=== PATIENT | male | born 1935 | race Caucasian/White ===

== ENCOUNTER 2016-10-26 15:20 | Emergency (ER) | payer OTHER, BC ==
[~2016-10-26] VITALS: Ht 177.8 cm; Wt 110.6 kg
[~2016-10-26 15:20] MED LIST: CMD/25 PO; ENAL10TA88 PO; FURO-85 PO; METO1TAB69 PO
[2016-10-26 15:28] VITALS: TEMP 36.3; Ht 177.8 cm; Wt 110.6 kg
[2016-10-26] MEDS ORDERED: XYLOCAINE 1%/SOD BICARB 20 ML VIAL INFIL ONE ×2 (15:45→18:30)
[2016-10-26] MEDS ORDERED: DIPHTHERIA/TETANUS/PERTUSSIS 0.5 ML SYR/VIAL IM. ONE (15:45)
[2016-10-26] MEDS ORDERED: ENAL5TAB83 PO (15:46)
[2016-10-26] MEDS ORDERED: CLIN150C PO (15:46)
[2016-10-26] MEDS ORDERED: HYDR25TA4 PO (15:46)
[2016-10-26] MEDS ORDERED: ATOR-22 PO (15:46)
[2016-10-26] MEDS ORDERED: WARF2.5T8 PO (15:46)
[2016-10-26] MEDS ORDERED: TAMS0.4C38 PO (15:50)
[2016-10-26 15:57] LABS: BASO % 0.3 %; BASO ABS # 0.02 K/uL (0-0.2); COMPLETE YES; EOS % 3.7 %; HEMATOCRIT 45.2 % (42-52); IG% 0.4 %; LYMPH % 12.9 %; LYMPH ABS # 0.95 K/uL (1.2-3.4); MEAN CELL VOLUME 90.6 fL (80-100); MEAN CORPUSCULAR HEMOGLOBIN 30.3 pg (25-34); MEAN CORPUSCULAR HGB CONC 33.4 g/dl (32-36); MEAN PLATELET VOLUME 8.4 fL (7.4-10.4); MONO % 8.6 %; NEUT % 74.1 %; PLATELET COUNT 160 K/uL (130-400); RED BLOOD COUNT 4.99 M/uL (4.7-6.1); WHITE BLOOD COUNT 7.34 K/uL (4.8-10.8)
--- NOTE | 2016-10-26 16:05 | DIAGNOSTIC IMAGING REPORT ---
HEAD CT NONCONTRAST CT DOSE: 782.75 mGycm HISTORY: Fall. Head injury. On thinners. TECHNIQUE: Multiaxial CT images of the head were performed without the use of intravenous contrast. Automated exposure control was utilized for this study. Comparison: None. Findings: Partial opacification of the ethmoid air cells. The mastoid air cells are clear. The calvarium and skull base are intact. There is no mass, hematoma, midline shift, acute infarct. White matter hypodensity is nonspecific but suggestive of microvascular ischemic change. The ventricles and sulci demonstrate mild age-related involutional changes. Impression: No acute intracranial abnormality. Electronically signed by: Luis Yepez M.D. 10/26/2016 4:03 PM Dictated Date/Time: 10/26/2016 4:00 PM
[2016-10-26 16:15] LABS: INR 2.2 (0.9-1.1); PARTIAL THROMBOPLASTIN RATIO 1.4
[2016-10-26 16:23] LABS: BUN/CREATININE RATIO 21.6 (10-20); CALCIUM 8.2 mg/dl (8.5-10.1); CREATININE 1.2 mg/dl (0.60-1.40); POTASSIUM 3.5 mmol/L (3.5-5.1)
--- NOTE | 2016-10-26 16:49 | DIAGNOSTIC IMAGING REPORT ---
LEFT HAND 3 VIEWS HISTORY: Fall. Left hand pain/laceration COMPARISON: None. FINDINGS: No acute fractures. Offset at the fifth carpometacarpal joint. The base of the fifth metacarpal demonstrates up to 4 mm of ulnar displacement in relation to the carpal bones. Dorsal soft tissue swelling. Moderate degenerative changes at the DIP and PIP joints. No radiopaque foreign bodies. IMPRESSION: Offset at the fifth carpometacarpal joint. There is approximately 4 mm of ulnar displacement of the fifth metacarpal in relation to the carpal bones. This likely represents a dislocation. No acute fractures. Electronically signed by: Luis Yepez M.D. 10/26/2016 4:48 PM Dictated Date/Time: 10/26/2016 4:44 PM
--- NOTE | 2016-10-26 16:49 | DIAGNOSTIC IMAGING REPORT ---
CHEST 2 VIEWS ROUTINE CLINICAL HISTORY: Fall. Left anterior chest wall pain COMPARISON STUDY: 04/04/2010 FINDINGS: The heart is enlarged. There is no pneumothorax. There is aortic tortuosity/ectasia. There is chronic residual thickening. There is no lobar consolidation. There are no pleural effusions. There are postsurgical changes of a left humeral arthroplasty. Degenerative changes are present within the right shoulder. There is a peritendinous calcification on the right.[ IMPRESSION: Cardiomegaly and mild chronic interstitial thickening. No acute findings. Electronically signed by: Harvey Martin M.D. 10/26/2016 4:48 PM Dictated Date/Time: 10/26/2016 4:47 PM
--- NOTE | 2016-10-26 17:10 | EMERGENCY ROOM VISIT NOTE ---
ED Visit Note First contact with patient: 15:36 I have seen and examined this patient with Blaise Frankel and generally agree with the treatment plan as discussed. Current/Historical Medications Scheduled Atorvastatin (Lipitor), 20 MG PO DAILY Clindamycin Hcl (Cleocin), 600 MG PO UD Enalapril (Vasotec), 5 MG PO DAILY Hydrochlorothiazide (Hctz), 25 MG PO DAILY Metoprolol Succ (Toprol Xl) (Toprol-Xl ), 100 MG PO DAILY Tamsulosin Hcl (Flomax), 0.4 MG PO HS Warfarin Sod (Jantoven), 2.5 MG PO DAILY Allergies Coded Allergies: Penicillins (Verified Adverse Reaction, Unknown, N/V, 09/23/09) No Known Allergies (Verified , 09/15/04) Vital Signs Date Time Temp Pulse Resp B/P Pulse Ox O2 Delivery O2 Flow Rate FiO2 10/26/16 15:28 36.3 76 20 114/75 94 Room Air Laboratory Results 10/26/16 15:48 Red Blood Count 4.99, Mean Corpuscular Volume 90.6, Mean Corpuscular Hemoglobin 30.3, Mean Corpuscular Hemoglobin Concent 33.4, Mean Platelet Volume 8.4, Neutrophils (%) (Auto) 74.1, Lymphocytes (%) (Auto) 12.9, Monocytes (%) (Auto) 8.6, Eosinophils (%) (Auto) 3.7, Basophils (%) (Auto) 0.3, Neutrophils # (Auto) 5.44, Lymphocytes # (Auto) 0.95, Monocytes # (Auto) 0.63, Eosinophils # (Auto) 0.27, Basophils # (Auto) 0.02 10/26/16 15:48 Test 10/26/16 15:48 White Blood Count 7.34 K/uL (4.8-10.8) Red Blood Count 4.99 M/uL (4.7-6.1) Hemoglobin 15.1 g/dL (14.0-18.0) Hematocrit 45.2 % (42-52) Mean Corpuscular Volume 90.6 fL (80-100) Mean Corpuscular Hemoglobin 30.3 pg (25-34) Mean Corpuscular Hemoglobin Concent 33.4 g/dl (32-36) Platelet Count 160 K/uL (130-400) Mean Platelet Volume 8.4 fL (7.4-10.4) Neutrophils (%) (Auto) 74.1 % Lymphocytes (%) (Auto) 12.9 % Monocytes (%) (Auto) 8.6 % Eosinophils (%) (Auto) 3.7 % Basophils (%) (Auto) 0.3 % Neutrophils # (Auto) 5.44 K/uL (1.4-6.5) Lymphocytes # (Auto) 0.95 K/uL (1.2-3.4) Monocytes # (Auto) 0.63 K/uL (0.11-0.59) Eosinophils # (Auto) 0.27 K/uL (0-0.5) Basophils # (Auto) 0.02 K/uL (0-0.2) RDW Standard Deviation 50.7 fL (36.4-46.3) RDW Coefficient of Variation 15.3 % (11.5-14.5) Immature Granulocyte % (Auto) 0.4 % Immature Granulocyte # (Auto) 0.03 K/uL (0.00-0.02) Prothrombin Time 24.0 SECONDS (9.0-12.0) Prothromb Time International Ratio 2.2 (0.9-1.1) Activated Partial Thromboplast Time 35.9 SECONDS (21.0-31.0) Partial Thromboplastin Ratio 1.4 Anion Gap 8.0 mmol/L (3-11) Est Creatinine Clear Calc Drug Dose 58.1 ml/min Estimated GFR () 64.4 Estimated GFR (Non- 55.6 BUN/Creatinine Ratio 21.6 (10-20) Calcium Level 8.2 mg/dl (8.5-10.1) Total Bilirubin 0.9 mg/dl (0.2-1) Aspartate Amino Transf (AST/SGOT) 16 U/L (15-37) Alanine Aminotransferase (ALT/SGPT) 18 U/L (12-78) Alkaline Phosphatase 69 U/L (45-117) Total Protein 6.5 gm/dl (6.4-8.2) Albumin 3.3 gm/dl (3.4-5.0) Globulin 3.2 gm/dl (2.5-4.0) Albumin/Globulin Ratio 1.0 (0.9-2) Medications Administered Medications (Trade) Dose Ordered Sig/Ashley Route Start Time Stop Time Status Last Admin Dose Admin Diphtheria/ Pertussis/Tetanus Vacc (Adacel Inj) 0.5 ml ONCE ONCE IM. 10/26/16 15:45 10/26/16 15:46 DC 10/26/16 16:08 0.5 ML Departure Information Referrals Humble Perea M.D. (PCP) Patient Instructions My [facility]
--- NOTE | 2016-10-26 17:11 | DIAGNOSTIC IMAGING REPORT ---
RIGHT KNEE 3 VIEWS HISTORY: Right knee injury Right COMPARISON: None. FINDINGS: There is no fracture or dislocation. Anterior soft tissue swelling. Small to moderate knee effusion. There is a right total knee arthroplasty. IMPRESSION: 1. No fractures. 2. Anterior soft tissue swelling and a small to moderate knee effusion. Electronically signed by: Luis Yepez M.D. 10/26/2016 5:10 PM Dictated Date/Time: 10/26/2016 5:09 PM
[2016-10-26] MEDS ORDERED: OXYC1TAB3 PO (19:23)
[2016-10-26] MEDS ORDERED: OXYCODONE IR HOME PACK PO ONE (19:30)
[2016-10-26 19:51] VITALS: BP 132/73; PULSE 76; O2SAT 98
--- NOTE | 2016-10-26 20:09 | ORTHOPEDIC CONSULTATION ---
DATE OF CONSULTATION: 10/26/2016 Mr. Pisano is an 81-year-old gentleman who missed a step, fell down and injured his right knee, left hand, hit his head. No loss of consciousness. His head injury and right knee as well as his left hand have been worked up in the Emergency Room. He does not have a prior history of left hand injuries. He had a laceration which has been closed. Radiographs show an abnormality which I have been asked to evaluate. PAST MEDICAL HISTORY: High blood pressure and atrial fibrillation. He is on Coumadin and sees Dr. Mcgovern for that. PHYSICAL EXAMINATION: EXTREMITIES: Exam of the left hand shows that there is a laceration over volar aspect of the proximal phalanx which has been sutured closed. He has intact sensation in all fingers. Capillary refill is less than 2 seconds. Radial pulses 1+. Median, radial and ulnar motor and sensory functions are intact. The little finger is slightly ulnarly deviated. He can fully extend all of his fingers with normal strength. He can flex the index, long, and ring fingers about 75% normal. He has about 50% flexion of the little finger. His profundus flexor function is intact on the little finger. There is tenderness over the proximal portion of the little finger, likely due to the laceration. There is tenderness over the fourth and fifth metacarpophalangeal joints. There is tenderness over the base of the fourth and fifth metacarpal at the carpometacarpal joints. The distal radius is otherwise nontender, as is the rest of the hand. Radiographs of the hand show that there is no fracture involving the little finger. There are degenerative changes in the carpus, particularly towards the base of the thumb joint area. There is not a fracture of the wrist. There is several millimeters of ulnar border displacement of the base of the fifth metacarpal with loss of symmetry of the fifth carpometacarpal joint. There is no volar or dorsal dislocation evident. There is not a fracture present. IMPRESSION: Left hand fifth carpometacarpal joint subluxation. PLAN: As I examined him, I stressed the joint and tried to reduce it. Ballottement can be felt where the joint reduces but is not stable. 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 A full dislocation could occur due to pulled muscles. The other option is closed reduction and percutaneous pinning. I do not think that simply casting this will be an effective definitive treatment. Because he is on Coumadin, he would have to come off that for several days. We would want his medical doctor or practice consultant to approve this and give him the advice regarding the management of the blood thinner. He could do this on Saturday, talking with Dr. Mcgovern. At that point, he will let me know how we would like to proceed. He has also been seen at [facility] before and if he would like, he could follow up with them. If he would like to continue to see me, that would be fine. I will be out of town next week and if he wants to continue treatment with me, I could refer him to one of my colleagues. I think that a closed reduction of the fifth carpometacarpal joint with several percutaneous pins under local or regional anesthetic at the surgery center would be appropriate. The pins would stay in for a few weeks and then could be removed and replaced by a cast or a splint. For now, elevate, ice. He will be placed into a bulky hand dressing with a volar splint. He can also use a sling and we will see him back in the office on Saturday. Pain medication.
--- NOTE | 2016-10-26 22:57 | EMERGENCY ROOM VISIT NOTE ---
History First contact with patient: 15:36 Chief Complaint: FALL Stated Complaint: FELL HIT HEAD RIBS AND CUT HAND Nursing Triage Summary: pt reports missing a step outside while at a gas station. Fell. Struck head on concrete. abrasions to head and nose, left hand laceration and abrasion. pt states "I think I broke my hand". c/o left hand pain, left rib pain. denies loc. pt is on blood thinner History of Present Illness The patient is a 81 year old male who presents to the Emergency Room with complaints of fall that occurred about one hour prior to arrival. The patient was at a gas station when he tried to step off a curb. The patient missed his step, slipped, and fell to the ground. He tried to catch himself with his left hand, but also struck his right knee. He is complaining of a mild headache and some left lower chest wall pain. The patient did not lose consciousness and recalls the events. He did not have lightheadedness, dizziness, chest pain, shortness of breath, palpitations before or after the event. He is on Coumadin. He rates his discomfort a 6/10. Review of Systems More than 10 systems were reviewed and otherwise negative with the exception of history of present illness. Past Medical/Surgical History History of hypertension and dyslipidemia Family History No pertinent family history Social History Smoking Status: Never Smoker Housing Status: lives with family Current/Historical Medications Scheduled Atorvastatin (Lipitor), 20 MG PO DAILY Clindamycin Hcl (Cleocin), 600 MG PO UD Enalapril (Vasotec), 5 MG PO DAILY Hydrochlorothiazide (Hctz), 25 MG PO DAILY Metoprolol Succ (Toprol Xl) (Toprol-Xl ), 100 MG PO DAILY Oxycodone Immediate Rel Tab (Roxicodone Ir), 1-2 TAB PO Q6 Tamsulosin Hcl (Flomax), 0.4 MG PO HS Warfarin Sod (Jantoven), 2.5 MG PO DAILY Allergies Coded Allergies: Penicillins (Verified Adverse Reaction, Unknown, N/V, 09/23/09) No Known Allergies (Verified , 09/15/04) Physical Exam Vital Signs Date Time Temp Pulse Resp B/P Pulse Ox O2 Delivery O2 Flow Rate FiO2 10/26/16 19:51 76 16 132/73 98 10/26/16 17:27 78 18 116/66 97 3/10/17 15:28 36.3 76 20 114/75 94 Room Air Pain Rating (0-10): 0 Physical Exam VITALS: Vitals are noted on the nurse's note and reviewed by myself. Vital signs stable. GENERAL: Well-developed, well-nourished, white male, who is in no acute distress and resting comfortably. Patient is cooperative with the examination. HEAD: Superficial abrasion appreciated anterior forehead EARS: External ear normal. External auditory canals clear, tympanic membranes pearly turner without erythema or effusion bilaterally. EYES: Pupils equal round and reactive to light and accommodation. Conjunctivae without injection, sclerae without icterus. Extraocular movements intact. NOSE: Patent, turbinates without inflammation or discharge. MOUTH: Mucous membranes moist. Tonsils are not enlarged. Pharynx without erythema, blood, or exudate. Uvula midline. Airway patent. NECK: Supple without nuchal rigidity. No lymphadenopathy. No thyromegaly. Cervical spine is nontender. HEART: Regular rate and rhythm without murmurs gallops or rubs. LUNGS: Clear to auscultation bilaterally without wheezes, rales or rhonchi. No retractions or accessory muscle use. CHEST WALL: Mild palpable tenderness over the left lower anterior ribs. No flail chest or step-off. ABDOMEN: Positive normal bowel sounds x 4. Soft, nontender, without masses or organomegaly. No guarding or rebound tenderness. MUSCULOSKELETAL: Mild tenderness present over the right knee with no significant ligamentous laxity. The left hand is with a 3.0 cm laceration at the palmar aspect fifth proximal digit. This wound does gape and will require repair. There is tenderness over the fourth and fifth metacarpals. 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 NEURO: Patient was alert and oriented to person place and time. CN II through XII grossly intact. Medical Decision & Procedures ER Provider Diagnostic Interpretation: HEAD CT NONCONTRAST CT DOSE: 782.75 mGycm HISTORY: Fall. Head injury. On thinners. TECHNIQUE: Multiaxial CT images of the head were performed without the use of intravenous contrast. Automated exposure control was utilized for this study. Comparison: None. Findings: Partial opacification of the ethmoid air cells. The mastoid air cells are clear. The calvarium and skull base are intact. There is no mass, hematoma, midline shift, acute infarct. White matter hypodensity is nonspecific but suggestive of microvascular ischemic change. The ventricles and sulci demonstrate mild age-related involutional changes. Impression: No acute intracranial abnormality. CHEST 2 VIEWS ROUTINE CLINICAL HISTORY: Fall. Left anterior chest wall pain COMPARISON STUDY: 04/04/2010 FINDINGS: The heart is enlarged. There is no pneumothorax. There is aortic tortuosity/ectasia. There is chronic residual thickening. There is no lobar consolidation. There are no pleural effusions. There are postsurgical changes of a left humeral arthroplasty. Degenerative changes are present within the right shoulder. There is a peritendinous calcification on the right.[ IMPRESSION: Cardiomegaly and mild chronic interstitial thickening. No acute findings. LEFT HAND 3 VIEWS HISTORY: Fall. Left hand pain/laceration COMPARISON: None. FINDINGS: No acute fractures. Offset at the fifth carpometacarpal joint. The base of the fifth metacarpal demonstrates up to 4 mm of ulnar displacement in relation to the carpal bones. Dorsal soft tissue swelling. Moderate degenerative changes at the DIP and PIP joints. No radiopaque foreign bodies. IMPRESSION: Offset at the fifth carpometacarpal joint. There is approximately 4 mm of ulnar displacement of the fifth metacarpal in relation to the carpal bones. This likely represents a dislocation. No acute fractures. RIGHT KNEE 3 VIEWS HISTORY: Right knee injury Right COMPARISON: None. FINDINGS: There is no fracture or dislocation. Anterior soft tissue swelling. Small to moderate knee effusion. There is a right total knee arthroplasty. IMPRESSION: 1. No fractures. 2. Anterior soft tissue swelling and a small to moderate knee effusion. Laboratory Results 10/26/16 15:48 Red Blood Count 4.99, Mean Corpuscular Volume 90.6, Mean Corpuscular Hemoglobin 30.3, Mean Corpuscular Hemoglobin Concent 33.4, Mean Platelet Volume 8.4, Neutrophils (%) (Auto) 74.1, Lymphocytes (%) (Auto) 12.9, Monocytes (%) (Auto) 8.6, Eosinophils (%) (Auto) 3.7, Basophils (%) (Auto) 0.3, Neutrophils # (Auto) 5.44, Lymphocytes # (Auto) 0.95, Monocytes # (Auto) 0.63, Eosinophils # (Auto) 0.27, Basophils # (Auto) 0.02 10/26/16 15:48 Test 10/26/16 15:48 White Blood Count 7.34 K/uL (4.8-10.8) Red Blood Count 4.99 M/uL (4.7-6.1) Hemoglobin 15.1 g/dL (14.0-18.0) Hematocrit 45.2 % (42-52) Mean Corpuscular Volume 90.6 fL (80-100) Mean Corpuscular Hemoglobin 30.3 pg (25-34) Mean Corpuscular Hemoglobin Concent 33.4 g/dl (32-36) Platelet Count 160 K/uL (130-400) Mean Platelet Volume 8.4 fL (7.4-10.4) Neutrophils (%) (Auto) 74.1 % Lymphocytes (%) (Auto) 12.9 % Monocytes (%) (Auto) 8.6 % Eosinophils (%) (Auto) 3.7 % Basophils (%) (Auto) 0.3 % Neutrophils # (Auto) 5.44 K/uL (1.4-6.5) Lymphocytes # (Auto) 0.95 K/uL (1.2-3.4) Monocytes # (Auto) 0.63 K/uL (0.11-0.59) Eosinophils # (Auto) 0.27 K/uL (0-0.5) Basophils # (Auto) 0.02 K/uL (0-0.2) RDW Standard Deviation 50.7 fL (36.4-46.3) RDW Coefficient of Variation 15.3 % (11.5-14.5) Immature Granulocyte % (Auto) 0.4 % Immature Granulocyte # (Auto) 0.03 K/uL (0.00-0.02) Prothrombin Time 24.0 SECONDS (9.0-12.0) Prothromb Time International Ratio 2.2 (0.9-1.1) Activated Partial Thromboplast Time 35.9 SECONDS (21.0-31.0) Partial Thromboplastin Ratio 1.4 Anion Gap 8.0 mmol/L (3-11) Est Creatinine Clear Calc Drug Dose 58.1 ml/min Estimated GFR () 64.4 Estimated GFR (Non- 55.6 BUN/Creatinine Ratio 21.6 (10-20) Calcium Level 8.2 mg/dl (8.5-10.1) Total Bilirubin 0.9 mg/dl (0.2-1) Aspartate Amino Transf (AST/SGOT) 16 U/L (15-37) Alanine Aminotransferase (ALT/SGPT) 18 U/L (12-78) Alkaline Phosphatase 69 U/L (45-117) Total Protein 6.5 gm/dl (6.4-8.2) Albumin 3.3 gm/dl (3.4-5.0) Globulin 3.2 gm/dl (2.5-4.0) Albumin/Globulin Ratio 1.0 (0.9-2) Medications Administered Medications (Trade) Dose Ordered Sig/Ashley Route Start Time Stop Time Status Last Admin Dose Admin Diphtheria/ Pertussis/Tetanus Vacc (Adacel Inj) 0.5 ml ONCE ONCE IM. 10/26/16 15:45 10/26/16 15:46 DC 10/26/16 16:08 0.5 ML Procedure Laceration repair. Patient elects to have their laceration repaired. Verbal consent was obtained to perform the procedure. There is an abundance of materials available for the procedure. Patient is not allergic to latex. Using sterile technique the wound was cleaned with Betadine. The area was sterilely draped. 4 ml of 1% buffered lidocaine was used to anesthetize the left 5th finger laceration. Once the patient was anesthetized, the wound was copiously irrigated under pressure with sterile saline. The wound was explored and there were no deep structures injured such as tendons, bone, or significant blood vessels. The laceration was repaired using 8 simple interrupted 5-0 nylon sutures with the wound edges being well approximated. Hemostasis was achieved. The area was cleaned with sterile saline and dressed with bacitracin ointment and bandage. The patient was given a tetanus booster. Patient tolerated the procedure well without complications. Blood loss was negligible. ED Course Physical exam and history were performed. Nursing notes and EMR were reviewed. Patient appears to have suffered a mechanical fall and subsequent injury. The patient is on blood thinners. IV access was established and labs were obtained. X-rays as well as a CT scan of his head were performed. The patient laceration was repaired as above and his tetanus was updated. Patient case was discussed with my attending physician, Dr. Reeder, who also independently evaluated the patient and remain closely involved in care and decision making. Patient's blood work is as above and was reviewed. He does not have a slightly elevated white blood cell count, anemia, gross anemia, or significant electrolyte imbalance. CT scan of the head does not show acute cranial bleed. X-ray of the chest and knee were without significant findings. On x-ray of the left hand, the patient appears to have a fifth carpometacarpal dislocation. This was discussed with the on-call orthopedist, Dr. Jean. Dr. Jean did evaluate the patient here in the emergency department after, and evidently the patient has an unstable dislocation that would not hold with reduction. The patient was placed in an Ortho-Glass splint with significant padding for this. He will need to follow with Dr. Jean in the office, as this may need surgical intervention to repair. Overall the patient continued in stable and good condition throughout his ER stay. He did not have any worsening of his symptoms. His blood work is without significant findings, and he does not appear to need admission to the hospital. He has good home care with his and family, and I do feel comfortable sending him home. He will need to follow with orthopedics and will be given a short course of OxyIR. He was given an arm sling for comfort. He was otherwise invited back to the ER with any new, worsening, or concerning symptoms. The chart was completed utilizing [employer] Speech Voice Recognition Software. Grammatical errors, random word insertions, pronoun errors, and incomplete sentences are an occasional consequence of this system due to software limitations, ambient noise, and hardware issues. Any formal questions or concerns about the content, text, or information contained within the body of this dictation should be directly addressed to the provider for clarification. . Medical Decision Differential diagnosis includes, but is not limited to: Sprain, strain, fracture , dislocation, subluxation, contusion, mechanical fall, cardiogenic fall, intracranial bleed, and others Impression Primary Impression: Fall Additional Impressions: Finger laceration Dislocation closed, wrist Contusion of multiple sites Head injury Departure Information Dispostion Home / Self-Care Condition GOOD Prescriptions Oxycodone Immediate Rel Tab (ROXICODONE IR) 5 Mg Tab 1-2 TAB PO Q6 for Pain, #24 TAB Prov: Blaise Frankel PA-C 10/26/16 Referrals Sherbondy,Monty S.,M.D. Forms HOME CARE DOCUMENTATION FORM, IMPORTANT VISIT INFORMATION Patient Instructions My [facility] Additional Instructions You were seen and evaluated today on an emergency basis only. This is not a substitute for, or an effort to provide, complete comprehensive medical care. It is not possible to recognize and treat all injuries or illnesses in a single emergency department visit. For this reason it is recommended that you followup with [facility] , Dr. Jean's office, on Saturday for ongoing care and evaluation. Oxycodone (OxyIR) 5mg: Take ONE or TWO pills every SIX hours for breakthrough pain. Avoid alcohol, operating machinery or dangerous equipment, working on ladders or roofs, DRIVING, or situations where being under the influence may be dangerous. It is recommended to use an [id number] stool softener such as Colace, 100mg twice daily while taking this medication to avoid constipation. Do not get your splint wet. Wear your arm sling for comfort. Keep wound clean and dry. Do not allow any crusting or dried blood to accumulate on sutures. If this occurs, use a mild soap/water on a Q-tip to clean the wound. Do not use Peroxide to clean the wound as this can delay healing Use an antibiotic ointment like Bacitracin for 3-4 days, then let wound dry. You may bathe and shower as normal, but DO NOT SOAK the wound. Suture removal in about 8-10 days with your Family Doctor or in the ER. Return sooner for any signs of infection, increasing redness, swelling, or drainage. You are welcome to return to the emergency department anytime with new, worsening, or concerning symptoms. Problem Qualifiers
== END 2016-10-26 19:54 | disposition home or self-care (01) ==
LOC: C.EDB 15:22 → C.EDC 19:54
DX: S61.412A Laceration without foreign body of left hand, initial encounter (principal); S63.055A Dislocation of other carpometacarpal joint of left hand, initial encounter; T14.8 Other injury of unspecified body region; S09.90XA Unspecified injury of head, initial encounter; S00.81XA Abrasion of other part of head, initial encounter; W10.1XXA Fall (on)(from) sidewalk curb, initial encounter; Y92.524 Gas station as the place of occurrence of the external cause; R07.89 Other chest pain; Z79.01 Long term (current) use of anticoagulants; I10 Essential (primary) hypertension; E78.5 Hyperlipidemia, unspecified; I51.7 Cardiomegaly; M25.461 Effusion, right knee; Z23 Encounter for immunization

== ENCOUNTER → 2016-10-31 | Outpatient (CLI) | payer OTHER, BC ==
[~2016-10-31] MED LIST changes: +ATOR-22 PO; +CLIN150C PO; -CMD/25 PO; -ENAL10TA88 PO; +ENAL5TAB83 PO; -FURO-85 PO; +HYDR25TA4 PO; +OXYC1TAB3 PO; +TAMS0.4C38 PO; +WARF2.5T8 PO
[2016-10-31 14:35] LABS: HEMATOCRIT 45.8 % (42-52); MEAN CELL VOLUME 88.4 fL (80-100); MEAN CORPUSCULAR HEMOGLOBIN 29.3 pg (25-34); MEAN CORPUSCULAR HGB CONC 33.2 g/dl (32-36); MEAN PLATELET VOLUME 8.5 fL (7.4-10.4); PLATELET COUNT 189 K/uL (130-400); RED BLOOD COUNT 5.18 M/uL (4.7-6.1); WHITE BLOOD COUNT 8.14 K/uL (4.8-10.8)
[2016-10-31 14:49] LABS: INR 2.1 (0.9-1.1); PROTHROMBIN TIME (PATIENT) 23.2 SECONDS (9.0-12.0)
[2016-10-31 15:06] LABS: BLOOD UREA NITROGEN 23 mg/dl (7-18); CARBON DIOXIDE 32 mmol/L (21-32); CHLORIDE 104 mmol/L (98-107); POTASSIUM 3.7 mmol/L (3.5-5.1); SODIUM 141 mmol/L (136-145)
== END | disposition home or self-care (01) ==
LOC: C.LAB 13:42
PROVIDERS: ATTEND Physical Medicine & Rehabilitation Sports Medicine
DX: Z01.810 Encounter for preprocedural cardiovascular examination (principal); Z01.812 Encounter for preprocedural laboratory examination; S63.055A Dislocation of other carpometacarpal joint of left hand, initial encounter; X58.XXXA Exposure to other specified factors, initial encounter

== ENCOUNTER → 2016-11-05 | Day surgery (SDC) | payer OTHER, BC ==
[2016-11-02 15:06] VITALS: Ht 177.8 cm; Wt 109.1 kg
[~2016-11-05] VITALS: Ht 177.8 cm; Wt 109.1 kg
[~2016-11-05] MED LIST changes: +BUPIVACAINE/EPINEPHRINE 0.5% MPF 1:200,000 30 ML VIAL ONE; +CLINDAMYCIN PHOS 150 MG/ML 2 ML VIAL IV SCH; +FENTANYL CITRATE INJ 50 MCG/1 ML 2 ML VIAL ONE; +LACTATED RINGER'S 1000ML 1,000 ML IV SCH; +LIDOCAINE HCL 1% 20 ML VIAL ONE; +LIDOCAINE HCL 2% 2 ML VIAL (20MG/ML) ONE; +MIDAZOLAM HCL 1 MG/ML 2ML VIAL ONE; +MoRPHine SULFATE 2 MG/ML CARP IV PRN; +MoRPHine SULFATE 4 MG/ML 1 ML CARP\\VIAL IV PRN; +ONDANSETRON INJ 2 MG/ML 2 ML VIAL IV PRN; -OXYC1TAB3 PO; +OXYCODONE/ACETAMINOPHEN 5-325 TAB PO PRN; +PROPOFOL IV EMULSION 10 MG/ML 20 ML VIAL IV ONE
--- NOTE | 2016-11-05 08:24 | History & Physical Bridge - [place] ---
H&P Re-Evaluation Bridge Note: I have examined the patient, reviewed the History & Physical and in the interval since the performance of the History & Physical I have noted the following changes of clinical significance: No changes noted
[2016-11-05 09:42] VITALS: TEMP 36.4
--- NOTE | 2016-11-05 09:43 | [facility] Post Operative Brief Note ---
Immediate Operative Summary Operative Date Nov 05, 2016. Pre-Operative Diagnosis Left 5th carpppometacarpal subluxation/dislocation Post-Operative Diagnosis same Procedure(s) Performed Left 5th Carpometacarpal Joint Closed Reduction, Percutaneous Pinning Surgeon Dr Farfan Clerical Office Worker Surgeon(s) Dr Ami Duarte Estimated Blood Loss 3 ml Findings As above Fluids (cc crystalloids) 450 Specimens 0 Drains n/a Anesthesia Regional + sedation Complication(s) None Disposition Recovery Room / PACU (Stable)
--- NOTE | 2016-11-05 09:45 | Discharge Instructions-SurgCtr ---
Discharge Instructions Date of Service Nov 05, 2016. Visit Reason for Visit: Left 5TH Carpometacarpal Subluxation/Dislocation Discharge Discharge Diagnosis / Problem: Status post closed reduction percutaneous pinning left 5th CMC joint Discharge Goals Goal(s): Decrease discomfort, Improve function Medications Stopped Medications Name(s): stopped blood thinner since saturday Activity Recommendations Activity Limitations: per Instructions/Follow-up section Lifting Limitations: until after follow-up appointment (no lifting more than a coffee cup) May Resume Sexual Activity: when tolerated Driving or Machine Use: No until off narcotics and out of splint Anesthesia . Post Anesthesia Instructions: If you have had General Anesthesia or IV Sedation: * Do not drive today. * Resume driving when surgeon permits. * Do not make important decisions or sign legal documents today. * Call surgeon for: 1. Temperature elevations greater than 101 degrees F. 2. Uncontrollable pain. 3. Excessive bleeding. 4. Persistent nausea and vomiting. 5. Medication intolerance (nausea, vomiting or rash). * For nausea and vomiting use only clear liquids such as: tea, soda, bouillon until nausea subsides, then gradually increase diet as tolerated. * If you have any concerns or questions, call your surgeon's office. If physician is unavailable and it is an emergency, call 911 or go to the nearest emergency room. . Instructions / Follow-Up Instructions / Follow-Up Dr. Farfan in 10-15 days. PT in 2-3 days. Diet Recommendations Home Diet: resume previous diet Procedures Procedures Performed: Left 5th Carpometacarpal Joint Closed Reduction, Percutaneous Pinning Pending Studies Studies pending at discharge: no Medical Emergencies . Who to Call and When: Medical Emergencies: If at any time you feel your situation is an emergency, please call 911 immediately. . Non-Emergent Contact Non-Emergency issues call your: Surgeon Call Non-Emergent contact if: temperature is above 101.5, your pain is not controlled, wound has increased drainage, wound has increased redness . . "Provider Documentation" section prepared by Roni Farfan.
--- NOTE | 2016-11-05 09:47 | [facility] Operative Report ---
Operative Report Operative Date Nov 05, 2016. Pre-Operative Diagnosis Left 5th carpometacarpal subluxation/dislocation Post-Operative Diagnosis same Procedure(s) Performed Left 5th Carpometacarpal Joint Closed Reduction, Percutaneous Pinning Surgeon Dr Farfan Poultry Inseminator Surgeon(s) Dr Ami Duarte Estimated Blood Loss 3 ml Findings As above. Fluids (cc crystalloids) 450 Specimens 0 Drains n/a Anesthesia Regional + sedation Complication(s) None Disposition Recovery Room / PACU (Stable) Implants 0.45 K-wires x 2 and Jurgan Balls. Indications The patient is a 81 year old male with a displaced left fifth CMC dislocation/ subluxation, that I recommended closed reduction and percutaneous pinning versus open fixation. The patient understands the risks of surgery, which include but are not limited to: bleeding, infection, re-operation, damage to nerves and arteries, continued pain, progression of arthritis, mal-union, non- union, and stiffness. The patient understands all of these instructions and explanations, all of their questions have been satisfactorily addressed. The patient has elected to proceed with surgery and the informed consent was signed. Description of Procedure The patient was taken to the Operating Room and placed in the supine position on the operating table. After adequate sedation was administered a multidisciplinary time-out was performed identifying my initials on the left hand as the correct and operative limb. His small finger laceration that had been closed with sutures in the emergency room looked well healed and were removed in the standard fashion. Prior to the incision being made, 600 mg of intravenous clindamycin were given. The left upper extremity was prepped and draped in the usual orthopaedic sterile fashion. An Ulnar nerve block was performed in the standard manner, along with fifth CMC and infiltration of the skin where the planned placement of the pins was located with 13 cc of a 50:50 mix of 1% Lidocaine plain and 0.5% Bupivacaine plain. Fluoro was brought in and a closed reduction was performed. Two 0.045 K- wires were placed percutaneously. The first from the fifth metacarpal through the hamate. The second through the 5th and 4th metacarpals. Final Fluoro images were obtained showing near anatomic reduction with good placement of the hardware. The K-wires were bent and cut short. Jurgan balls were placed. The previous wound was cleaned and Steri-Strips placed overtop. The K-wires were dressed with Xeroform gauze, sterile gauze, sterile Webril, and an Ulnar gutter splint was placed. The sponge and needle counts were correct. He was taken to the recovery room in stable condition. Post-op Instructions: Pain medicine prescription was given pre-operatively to be taken as needed. The patient will elevate, ice, and will keep the splint clean and dry. No lifting with his left upper extremity more than a cup of coffee. The patient will follow up with me in 10-15 days. I attest to the content of the Intraoperative Record and any orders documented therein. Any exceptions are noted below.
[2016-11-05 10:29] VITALS: BP 108/75; PULSE 74; O2SAT 96
--- NOTE | 2016-11-05 10:45 | Anesthesia Progress Nt - [facility] ---
Anesthesia Post Op Note Date & Time Nov 05, 2016 at 10:45 Vital Signs Pain Intensity: 0 Vital Signs Past 12 Hours Date Time Temp Pulse Resp B/P Pulse Ox O2 Delivery O2 Flow Rate FiO2 11/05/16 10:29 74 16 108/75 96 Room Air 11/05/16 09:42 36.4 76 16 103/68 95 Room Air 11/05/16 07:37 36.6 76 18 121/68 95 Room Air Notes Mental Status: alert / awake / arousable, participated in evaluation Pt Amnestic to Procedure: Yes Nausea / Vomiting: adequately controlled Pain: adequately controlled Airway Patency, RR, SpO2: stable & adequate BP & HR: stable & adequate Hydration State: stable & adequate Anesthetic Complications: no major complications apparent
== END | disposition home or self-care (01) ==
LOC: X.SURG 07:22
PROVIDERS: ATTEND Orthopaedic Surgery Sports Medicine
DX: S63.051A Subluxation of other carpometacarpal joint of right hand, initial encounter (principal); X58.XXXA Exposure to other specified factors, initial encounter; I10 Essential (primary) hypertension; E78.5 Hyperlipidemia, unspecified; I48.91 Unspecified atrial fibrillation; E66.9 Obesity, unspecified; Z96.641 Presence of right artificial hip joint; Z96.653 Presence of artificial knee joint, bilateral; Z79.899 Other long term (current) drug therapy; Z79.01 Long term (current) use of anticoagulants

== ENCOUNTER → 2016-12-04 | Outpatient (CLI) | payer OTHER, BC ==
[~2016-12-04] MED LIST changes: -BUPIVACAINE/EPINEPHRINE 0.5% MPF 1:200,000 30 ML VIAL ONE; -CLINDAMYCIN PHOS 150 MG/ML 2 ML VIAL IV SCH; -FENTANYL CITRATE INJ 50 MCG/1 ML 2 ML VIAL ONE; -LACTATED RINGER'S 1000ML 1,000 ML IV SCH; -LIDOCAINE HCL 1% 20 ML VIAL ONE; -LIDOCAINE HCL 2% 2 ML VIAL (20MG/ML) ONE; +METO100T44 PO; -METO1TAB69 PO; -MIDAZOLAM HCL 1 MG/ML 2ML VIAL ONE; -MoRPHine SULFATE 2 MG/ML CARP IV PRN; -MoRPHine SULFATE 4 MG/ML 1 ML CARP\\VIAL IV PRN; -ONDANSETRON INJ 2 MG/ML 2 ML VIAL IV PRN; -OXYCODONE/ACETAMINOPHEN 5-325 TAB PO PRN; -PROPOFOL IV EMULSION 10 MG/ML 20 ML VIAL IV ONE
== END | disposition home or self-care (01) ==
LOC: C.RDSM 13:55
PROVIDERS: ATTEND Orthopaedic Surgery Sports Medicine
DX: Z09 Encounter for follow-up examination after completed treatment for conditions other than malignant neoplasm (principal)

== ENCOUNTER → 2016-12-18 | Outpatient (CLI) | payer OTHER, BC | END | disposition home or self-care (01) | LOC: C.RDSM 16:00 | PROVIDERS: ATTEND Orthopaedic Surgery Sports Medicine | DX: Z51.89 Encounter for other specified aftercare (principal); Z09 Encounter for follow-up examination after completed treatment for conditions other than malignant neoplasm ==

== ENCOUNTER → 2017-01-24 | Outpatient (CLI) | payer OTHER, BC | END | disposition home or self-care (01) | LOC: C.RDSM 08:47 | PROVIDERS: ATTEND Orthopaedic Surgery Sports Medicine | DX: Z09 Encounter for follow-up examination after completed treatment for conditions other than malignant neoplasm (principal); M79.642 Pain in left hand ==

== ENCOUNTER → 2017-07-02 | Outpatient (CLI) | payer OTHER, BC | END | disposition home or self-care (01) | LOC: C.LABPBG 08:16 | PROVIDERS: ATTEND Urology | DX: N20.0 Calculus of kidney (principal) ==

== ENCOUNTER → 2017-08-13 | Outpatient (CLI) | payer OTHER, BC ==
--- NOTE | 2017-08-13 16:04 | DIAGNOSTIC IMAGING REPORT ---
LEFT LOWER EXTREMITY VENOUS DOPPLER CLINICAL HISTORY: HEMATOMA AND CONTUSION PAIN AND SWELLING. COMPARISON STUDY: No previous studies for comparison. TECHNIQUE: Sonography of the deep venous system of the left lower extremity was performed. Compression and augmentation were evaluated. FINDINGS: The common femoral, superficial femoral and popliteal veins were compressible. Augmentation was normal. Flow was shown within the deep calf vessels. Note is made of an elongated complex 12.9 x 6 x 1.1 cm hypoechoic fluid collection of the deep subcutaneous tissues of the lateral left calf. This contains no color flow. IMPRESSION: 1. No evidence of deep venous thrombus within the left lower extremity. 2. 12.9 x 6 x 1.1 cm complex subcutaneous fluid collection of the lateral left calf suggestive of a hematoma. Electronically signed by: Sampson Hackett M.D. 08/13/2017 4:03 PM Dictated Date/Time: 08/13/2017 4:00 PM
--- NOTE | 2017-08-21 11:43 | CODING QUERY MEDICAL NECESSITY ---
SUPPORTING DIAGNOSIS NEEDED A supporting diagnosis is required for the test/procedure performed on this patient in order for us to be reimbursed by the patient's insurance. Please provide a supporting diagnosis for the following test/procedure listed below next to the test name along with your signature. *If there is no additional diagnosis for this patient that would support the following test/procedure please document that below next to the test/procedure. Test(s)/Procedure(s) that require a supporting diagnosis: * US VENOUS UNIL LWR EXT DOPPLER DIAGNOSIS: Provider Signature: Date: Thank you Marta [place] [employer] Once completed, please kindly fax back to [phone] For questions please call [phone]
== END | disposition home or self-care (01) ==
LOC: C.ULTR 14:59
PROVIDERS: ATTEND Orthopaedic Surgery Sports Medicine
DX: T14.8XXA Other injury of unspecified body region, initial encounter (principal); X58.XXXA Exposure to other specified factors, initial encounter

== ENCOUNTER → 2017-12-19 | Outpatient (CLI) | payer OTHER, BC ==
--- NOTE | 2017-12-19 12:38 | DIAGNOSTIC IMAGING REPORT ---
(TESTICULAR) SCROTUM-CONT HISTORY: Mass TESTICULAR MASS COMPARISON: None. FINDINGS: Right testis: Maximum dimension 3.4 cm. Uniform echogenicity. Normal vascular flow Left testis: Maximum dimension 2.8 cm. Uniform echogenicity. Normal vascular flow. Bilateral varicoceles are present. Reducible right inguinal hernia is present. IMPRESSION: 1. Normal testes bilaterally with normal vascular flow.. 2. Bilateral varicoceles. 3. Reducible right inguinal hernia. The above report was generated using voice recognition software. It may contain grammatical, syntax or spelling errors. Electronically signed by: Mike Gay M.D. 12/19/2017 12:37 PM Dictated Date/Time: 12/19/2017 12:35 PM
== END | disposition home or self-care (01) ==
LOC: C.ULTRBC 11:55
PROVIDERS: ATTEND Nurse Practitioner Family
DX: I86.1 Scrotal varices (principal)